=== PATIENT | male | born 1960 | race Caucasian/White ===

== ENCOUNTER 2017-06-09 05:11 | Emergency (ER) | payer SELFPAY ==
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
--- NOTE | 2017-06-10 06:41 | RADIOLOGY REPORT ---
DATE: 06/09/2017 at 0557. EXAM: ABDOMEN, TWO VIEWS. HISTORY: Swallowed dental implant two to three hours ago. TECHNIQUE: Upright AP and lateral views of the abdomen are obtained. COMPARISON: Same-day single view of the chest. FINDINGS: There is a radiodense foreign body projecting at the midline of the abdomen, likely within the stomach or proximal small bowel. This has a relative cone shape with linear metallic density projecting beyond its base. Overall this measures 13 x 7.0 mm and is consistent with a dental implant. No bowel dilatation, mass, nor suspicious calcification. A moderate amount of stool within the colon. There are degenerative changes scattered within the visualized spine and hips. There is prominent, chronic-appearing ossific density noted near the lateral margin of the left femoral neck measuring 3.0 x 3.1 cm. It is indeterminate whether this is a spur or a loose body. IMPRESSION: 1. RADIODENSE FOREIGN BODY WITHIN EITHER THE GASTRIC BODY OR PROXIMAL DUODENUM. 2. A MODERATE AMOUNT OF STOOL WITHIN THE COLON. 3. DEGENERATIVE CHANGES OF THE VISUALIZED SPINE AND HIPS. JOB NUMBER: [id number] [facility]
--- NOTE | 2017-06-10 07:02 | RADIOLOGY REPORT ---
DATE: 06/09/2017 at 0554. EXAM: CHEST, ONE VIEW. HISTORY: Swallowed dental implant two to three hours ago. TECHNIQUE: An upright PA view of the chest is obtained. COMPARISON: Same-day two views of the abdomen. FINDINGS: The heart is normal in size, and the pulmonary vasculature is nondilated. The lungs and pleural spaces are clear. There are mild degenerative changes scattered throughout the visualized spine. An old, healed fracture deformity of the mid to distal right clavicle is suspected. IMPRESSION: NO EVIDENCE OF AN ACUTE INTRATHORACIC PROCESS. NO INTRATHORACIC FOREIGN BODY. [facility]BER: [id number] [facility]
== END 2017-06-09 06:15 | disposition home or self-care (01) ==
LOC: ER 05:11
DX: T18.3XXA Foreign body in small intestine, initial encounter (principal); I10 Essential (primary) hypertension; F17.210 Nicotine dependence, cigarettes, uncomplicated
CPT/HCPCS: 71045; 74018; 74019; 99283